=== PATIENT | male | born 1950 | race Caucasian/White ===

== ENCOUNTER 2016-08-05 02:22 | Emergency (ER) | payer MEDICARE, OTHER | END 2016-08-05 06:05 | disposition home or self-care (01) | LOC: ER 02:22 | DX: S83.241A Other tear of medial meniscus, current injury, right knee, initial encounter (principal); M25.561 Pain in right knee; W18.40XA Slipping, tripping and stumbling without falling, unspecified, initial encounter; Y93.01 Activity, walking, marching and hiking; Y92.828 Other wilderness area as the place of occurrence of the external cause; Z79.899 Other long term (current) drug therapy; I10 Essential (primary) hypertension; E78.00 Pure hypercholesterolemia, unspecified ==